=== PATIENT | male | born 1965 | race Caucasian/White ===

== ENCOUNTER 2021-06-12 09:36 | Outpatient (REF) | payer OTHER, SELFPAY ==
[2021-06-12 10:35] LABS: COVID-19 Test Negative (Negative)
== END 2021-06-12 09:37 | disposition home or self-care (01) ==
LOC: HO.LAB 09:36
PROVIDERS: Visit Provider Internal Medicine
DX: Z20.822 Contact with and (suspected) exposure to COVID-19 (principal)
CPT/HCPCS: 36415; 87635; C9803

== ENCOUNTER 2021-10-09 07:44 | Emergency (ER) | payer OTHER, SELFPAY ==
[2021-10-09 07:48] VITALS: BP 133/94; PULSE 115; RESP 16; TEMP 36.6; O2SAT 97; BMI 21.7
== END 2021-10-09 10:02 | disposition left against medical advice (07) ==
PROVIDERS: Emergency Provider Emergency Medicine
DX: R44.3 Hallucinations, unspecified (principal); M79.10 Myalgia, unspecified site; I10 Essential (primary) hypertension
CPT/HCPCS: 99281

== ENCOUNTER 2023-01-09 08:35 | Outpatient (RCR) | payer OTHER, SELFPAY | END 2023-01-21 09:52 | disposition home or self-care (01) | LOC: HO.PT 08:35 | PROVIDERS: PCP Student in an Organized Health Care Education/Training Program; Visit Provider Student in an Organized Health Care Education/Training Program | DX: M54.02 Panniculitis affecting regions of neck and back, cervical region (principal) | CPT/HCPCS: 97161; 97530 ==

== ENCOUNTER 2025-02-01 09:51 | Outpatient (AMB) | payer OTHER, SELFPAY | END 2025-02-01 15:53 | disposition home or self-care (01) | LOC: HO.HMGAL 09:51 | PROVIDERS: PCP Student in an Organized Health Care Education/Training Program; Visit Provider Registered Nurse Emergency | DX: J30.89 Other allergic rhinitis (principal) | CPT/HCPCS: 95117; 95165 ==

== ENCOUNTER 2025-02-22 10:34 | Outpatient (AMB) | payer OTHER, SELFPAY | END 2025-02-22 10:45 | disposition home or self-care (01) | LOC: HO.HMGAL 10:34 | PROVIDERS: PCP Student in an Organized Health Care Education/Training Program; Visit Provider Registered Nurse Emergency | DX: J30.89 Other allergic rhinitis (principal) | CPT/HCPCS: 95117; 95165 ==

== ENCOUNTER 2025-03-29 10:56 | Outpatient (AMB) | payer OTHER, SELFPAY | END 2025-03-29 10:56 | disposition home or self-care (01) | LOC: HO.HMGAL 10:56 | PROVIDERS: PCP Nurse Practitioner Family; Visit Provider Registered Nurse Emergency | DX: J30.89 Other allergic rhinitis (principal) | CPT/HCPCS: 95117; 95165 ==

== ENCOUNTER 2025-04-12 10:43 | Outpatient (AMB) | payer OTHER, SELFPAY ==
--- OUTSIDE RECORDS SUMMARY | 2025-04-12 13:06 | XMS_ITS | Data Portability ---
Author Organization [place] - [facility], [facility] Address [address] [place] [address] Care Team Providers Care Fiberglasser Name Role Phone MARY LOU GUNDERSON Primary Care Provider Assessment No assessment recorded. Plan of Treatment Reminders Order Date Submit Date Provider Last Modified By Organization Details Last Modified Time Details Appointments MUST SEE 15 2024 01:15P Tres Astudillo MD Not available Not available Not available Lab None recorded. Referral None recorded. Procedures None recorded. Surgeries None recorded. Imaging MRI, lumbar spine, w/o contrast - EVALUATE LUMBAR FOR RADICULOP ATHY 2024 025 [facility] ([facility]), [address], [place], [address], 07/04/2024 14:35:33 XR, thoracic spine, 2 view - RM 120 2 V THORA COLUMBAR SPINE AP/LATERA L 2024 025 [email or web address], [address], [address], [place], [address], 07/01/2024 11:52:53 Medication Orders None recorded. Patient TargetsNo targets recorded. Patient InstructionsNo instructions recorded. Reason for Referral None Reported. Results Created Date Observation Date Name Description Value Unit Range Abnormal Flag Note LastModifiedBy Organization Detail LastModifiedTime 06/18/1906/18/2024 XR, thora cic spine , 2 view http:/ [email or web address] ?Encry pted=s hAaTro YD8dLq bEUv6g %2BXZw aYqtaq 0bqfl% 2Fg9IQ a4ajBk vP9nXo QUaueC m3YtLR FvZlgJ JJ8mAn HZtai3 0d7857 AC0Kqb 3%2BEV auuKiQ trMwF INTERFACE [facility] [address], [place], [address], 06/18/2024 14:10:20 06/18/19 25 06/18/2024 XR, thora cic spine , 2 view [email or web address] ?Encry pted=s hAaTro YD8dLq bEUv6g %2BXZw aYqtaq 0bqfl% 2Fg9IQ a4ajBk vP9nXo QUaueC m3YtLR FvZlgJ JJ8mAn HZtai3 0u9801 AC0Kqb 3%2BEV auuKiQ trMwF INTERFACE [facility] [address], [place], [address], 06/18/2024 14:10:22 07/04/19 25 07/01/2024 MRI, lumba r spine , w/o contr ast [facility] Access ion Number : [id number] Patirita t Name: Jose A Oconnellon Gelya l Record Number : [id number] Date of : 1964 Date of Exam: 2024 Referr ing Physic rsoio: Jessica [facility] [address] [facility], [facility] [address] Exam: MR Lumbar Spine (C-) CPT 61808 Room Descri ption: Payne GE Pion 3T INDICA TION: Consen t back pain extend ing into the left lower extrem ity with parest hesias . Histor y of scolio sis surger y in 2019 and 1983. TECHNI QUE: Multip lanar multis equenc e MRI of the lumbar spine was perfor med withou t IV contra st COMPAR KIRA: No prior FINDIN GS: There is levosc oliosi s of the lumbar spine center ed at L2. The sagitt al alignm ent is otherw ise mainta ined. There is contract administration manager ior spinal fusion with instru mentat ion due to patien t's prior scolio sis surger ies. Instru mentat ion is presen t from L2 throug h S1-S2. Verteb ral body height s are mainta ined. There are Modic type I/II endpla te marrow change s at L5-S1 and L4-L5. There is no suspic ious bone marrow lesion . The conus termin ates at T12-L1 . The parasp inal soft tissue s extuba jacquelyn fat infilt ration at the lower lumbar upper sacral spine probab ly relate d to postsu rgical change s. The parasp inal soft tissue s are otherw ise unrema rkable . T2 hyperi ntense foci are presen t in both kidney s compat ible with simple cysts. The retrop eriton eum is otherw ise normal . At T12-L1 , there is no spinal canal or forami nal stenos is. There is disc desicc ation withou t bulgin g. There is levosc oliosi s. At L1-L2, the spinal canal is subopt imally evalua jacquelyn due to artifa ct relate d to hardwa re. There is no canal or forami nal stenos is. There is disc desicc ation withou t disc bulgin g. At L2-L3, there is subopt imal evalua tion of the forami na and canal due to artifa ct relate d to adjace nt hardwa re. At L3-L4, there is partia l obscur ation of the right forame n due to artifa ct. There is no canal or left forami nal stenos is. At L4-L5, there are contract administration manager ior endpla te spurs and a minima l disc bulge withou t canal stenos is. There is no forami nal stenos is. At L5-S1, artifa ct preven ts full evalua tion of the canal. There is no signif icant forami nal stenos is. IMPRES CATHREINE: Postsu rgical change s of the lumbar spine with artifa ct partia lly obscur ing the L1-L2 canal, L2-L3 canal and forami na, L3-L4 right forame n, and L5-S1 canal. Levosc oliosi s of the lumbar spine center ed at L2. No high-g rade spinal canal or forami nal stenos es at the visual ized levels . Electr onical ly Signed By: Lore [email or web address] [facility] ([facility]) [address] [facility] [place], [address], 07/06/2024 09:57:03 07/04/19 25 07/01/2024 MRI, lumba r spine , w/o contr ast No observ ation record ed. [facility] [address] [place], [address], 07/06/2024 09:56:59 Result Notes Documentation Provider Name and Address Organization Details Recorded Time Xr, Thoracic Spine, 2 View : [email or web address] ncrypted=blOxHgvUC9lLylTBm 6g%9FIIfsTldwm4xprx%2Fg9IQ h3rhYroH9dLiRCrncYo4WyGHOx VtqZVH8dUzQGwuf28p6131JQ6B qb3%2BEVauuKiQtrMwF Not Available [facility] 06/18/2024 14:10:21 Xr, Thoracic Spine, 2 View : [email or web address] ncrypted=vsBzZreFU0wVkePFz 6g%2HYEntGnlqu8hqfp%2Fg9IQ q4ukIgwJ9oVoKBfeeTy7LjDPPh GtmZAW7rNmKAhqr17q5583PW6X qb3%2BEVauuKiQtrMwF Not Available [facility] 06/18/2024 14:10:23 [facility]ri, Lumbar Spine, W/o Contrast : [facility]: [id number] Patient Name: Arian Oconnell Date of : 1965 Date of Exam: 07-01-2024 Referring Physician: Jessica Morales [facility] [address] [place], [place] [address] Exam: MR Lumbar Spine (C-) CPT 81217 Room Description: Payne GE Pion 3T INDICATION: Consent back pain extending into the left lower extremity with paresthesias. History of scoliosis surgery in 2019 and 1983. TECHNIQUE: Multiplanar multisequence MRI of the lumbar spine was performed without IV contrast COMPARISON: No prior FINDINGS: There is levoscoliosis of the lumbar spine centered at L2. The sagittal alignment is otherwise maintained. There is posterior spinal fusion with instrumentation due to patient's prior scoliosis surgeries. Instrumentation is present from L2 through S1-S2. Vertebral body heights are maintained. There are Modic type I/II endplate marrow changes at L5-S1 and L4-L5. There is no suspicious bone marrow lesion. The conus terminates at T12-L1. The paraspinal soft tissues extubated fat infiltration at the lower lumbar upper sacral spine probably related to postsurgical changes. The paraspinal soft tissues are otherwise unremarkable. T2 hyperintense foci are present in both kidneys compatible with simple cysts. The retroperitoneum is otherwise normal. At T12-L1, there is no spinal canal or foraminal stenosis. There is disc desiccation without bulging. There is levoscoliosis. At L1-L2, the spinal canal is suboptimally evaluated due to artifact related to hardware. There is no canal or foraminal stenosis. There is disc desiccation without disc bulging. At L2-L3, there is suboptimal evaluation of the foramina and canal due to artifact related to adjacent hardware. At L3-L4, there is partial obscuration of the right foramen due to artifact. There is no canal or left foraminal stenosis. At L4-L5, there are posterior endplate spurs and a minimal disc bulge without canal stenosis. There is no foraminal stenosis. At L5-S1, artifact prevents full evaluation of the canal. There is no significant foraminal stenosis. IMPRESSION: Postsurgical changes of the lumbar spine with artifact partially obscuring the L1-L2 canal, L2-L3 canal and foramina, L3-L4 right foramen, and L5-S1 canal. Levoscoliosis of the lumbar spine centered at L2. No high-grade spinal canal or foraminal stenoses at the visualized levels. Electronically Signed By: Lore MORALES PA-C [address], [place], [address], [facility] 07/06/2024 09:57:03 Problems Name Problem SNOMED Code Status Onset Date Resolution Date Notes Provider Name and Address Organization Details Recorded Time Lumbar radiculopathy 763324383 Active 2024 JESSICA MORALES PA-C [address], [place], [address], [facility] 10:38:48 Problem Notes None recorded. Medical Equipment None Reported. Allergies No known drug allergies Medications Name Sig Start Date Stop Date Status Note LastModified by Organization Details LastModified Time atorvastatin 20 mg tablet TOME 1 TABLETA POR V A ORAL TODOS LOS D AL ACOSTARSE active Not Available Not Available No t Available cetirizine 10 mg tablet TOME 1 TABLETA POR V A ORAL TODOS LOS D active Not Available Not Available No t Available meloxicam 15 mg tablet TOME 1 TABLETA POR V A ORAL TODOS LOS D active Not Available Not Available No t Available omeprazole 40 mg capsule,jaskaran yed release active Not Available Not Available Not Available lisinopril 30 mg tablet TOME MAURY TABLETA TODOS LOS D active Not Available Not Available No t Available gabapentin 100 mg capsule ALYCIA MAURY CAPSULA POR LA BOCA JAYCOB VECES AL CARLY MAYANK SEA NECESARIO PAIN RADIATING DOWN LEG active Not Available Not Available No t Available albuterol sulfate HFA 90 mcg/actuatio n aerosol inhaler USAR 2 INHALACIONS POR LA BOCA CUATRO VECES AL CARLY CUANDO SEA NECESARIO PARA HARRIETT active Not Available Not Available No t Available ketoconazole 2 % topical cream APLIQUE AL SUKHI AFECTADA TOPICALLY TODOS LOS D FOR 14 DAYS active Not Available Not Available No t Available lisinopril 40 mg tablet TOME 1 TABLETA POR V A ORAL TODOS LOS D active Not Available Not Available No t Available fluticasone propionate 50 mcg/actuatio n nasal spray,suspen catherine active Not Available Not Available Not Available diclofenac 1 % topical gel APLIQUE CUATRO VECES AL D A TO SHOULDER/BA CK active Not Available Not Available No t Available Certavite-An tioxidant 18 mg-400 mcg tablet TOME MAURY TABLETA TODOS LOS D active Not Available Not Available No t Available Clear Eyes Natural Tears 0.5 %-0.6 % drops INSTILL 2 DROPS EYES, BOTH 2 TIMES A DAY, NEEDED FOR DRY EYES active Not Available Not Available No t Available Vitals Date Recorded Body height Body mass index (BMI) Body weight Provider Name and Address Organization Details Last Updated DateTime 06/18/2024 160.02 cm 23.9 kg/m2 95171.97 g Dayo Yu [facility] 06/18/2024 13:57:56 Date Recorded Body height Body mass index (BMI) Body weight Provider Name and Address Organization Details Last Updated DateTime 07/10/2024 160.02 cm 23.9 kg/m2 84024.97 g KRISTA VARNER [facility] 07/10/2024 14:27:18 Date Recorded Body height Provider Name an d Address Organization Details Last Updated DateTime 10/09/2024 160.02 cm RAMIREZ FLORES [facility] 10/09/2024 09:16:29 Date Recorded Body height Body mass index (BMI) Body weight Provider Name and Address Organization Details Last Updated DateTime 02/10/2025 160.02 cm 23.9 kg/m2 91137.97 g DEENA HARDEN [facility] 02/10/2025 11:52:18 Social History None recorded. Functional Status None recorded. Mental Status None recorded. Family History Nothing Reported. Medical History No medical history recorded. Past Encounters Encounter ID Performer Location Encounter Start Date Encounter Closed Date Diagnosis/Indication Diagnosis SNOMED-CT Code Diagnosis ICD10 Code Diagnosis IMO Codes Diagnosis Note [id number] SULEIMAN JACKSON [facility] [address] [place] [address] 06/18/2024 13:37:24 07/01/2024 11:52:53 Low back pain 761628371 M54.50 324246 Lumbar radiculopathy 128 678136 M54.16 [id number] SULEIMAN JACKSON [facility] [place] [address] [place] [address] 07/10/2024 14:24:38 07/20/2024 13:30:16 Congenital postural scoliosis 29702661 Q67.5 5682 Lumbar radiculopathy 128 695303 M54.16 89498 [id number] JESSICA MORALSE PA-C [facility] [address] [place] [address] 10/09/2024 08:58:29 10/16/2024 11:35:24 Lumbar radiculopathy 633812837 M54.16 56416 [id number] Hazel Ramirez PA-C [facility] [place] [address] [place] [address] 02/10/2025 11:47:19 02/19/2025 08:21:18 Lumbar radiculopathy 920113187 M54.16 17267 Health Concerns Section Related Observation LastModified by Organization Detai ls LastModified Time None Recorded Concern Status LastModified by Organization Details LastModified Time None Recorded Advance Directives Directive None Recorded Payers Insurance Date Sequence Insurance Name Policy Number Policy White Covered Member ID White Member ID Guarantor Name 02/19/2025 1 [facility] - DOS ON OR AFTER 2022 - ONE CARE (MEDICARE REPLACEMENT/ADV ANTAGE - HMO) Arianvida Oconnell [id number] Arianvida Majora Notes Date Note Type Note Provider Name and Address Organization Details Recorded Time 06/18/2024 text/html I am seeing the patient today under the supervision of Dr. Martinez who was available but who did not see the patient. HPI: Patient is a pleasant 59-year-old male who presents for evaluation of ongoing low back pain. Patient has a history significant for scoliosis he underwent lumbar fusion surgery back in 1983 most recently in 1999 and one of the rods broke and had to be replaced. He states he has been having mid to low back pain with radicular symptoms down his left leg when he is standing and walking for prolonged periods of time. His primary care physician has been treating and following him at this point. He states he has done acupuncture and physical therapy in the past as well as currently taking meloxicam, gabapentin and Tylenol daily. He states he still occasionally has severe pain from time to time. He is also utilizing a brace on and off when the pain is severe. Denies any trauma. TREATMENTS: As noted in HPI Past family, medical, social history and review of systems has been reviewed, updated and signed by me and is located in the patient s chart. Examination: The patient is well appearing, alert and oriented x3 and in no acute distress. Gait is antalgic. Patient is able to transition from seated to standing position without difficulty.Inspection of the spine reveals no step off, deformity or overlying skin changes or atrophy. Patient has a notable elevation of the left shoulder compared to the right side. Hip levels seem to be neutral.The spine is tender over the mid levels of the thoracic spine nontender over the paravertebral musculature of the thoracic and lumbar spine. Nontender over TFL, greater trochanters or posterior hip musculature.Range of motion of the Lumbar spine is 75% of normal pain noted with extension.Range of motion of the hips and knees is full without discomfortStrength in lower extremity myotomes 5/5 bilaterally.Sensation intact.Re e xes normal 2+at knee and ankle. No ankle clonus X-rays ordered, obtained and reviewed at [facility], 2 views of the thoracic spine reveals no fractures, instability or bony lesions. Degenerative disc disease noted. He can see the upward ends of the previous hardware from the spinal fusion. Scoliosis views completed at [facility] in September of last year indicative of severe scoliosis. Lumbar fusion hardware was in place without any signs of breaks or shifting.76 degree convex right curve T4-T962 degrees left curvature of T9-L3 Impression/Plan: Severe scoliosis with degenerative disc disease and spondylosis. Discussed with the patient at this time I would recommend moving forward with an MRI to evaluate the lumbar spine to potentially trial injection type therapy. He is maxed out on conservative measures at this time and has not had significant relief of symptoms. Patient expressed understanding and agreed with the plan will order an MRI of the lumbar spine and follow-up in 2 to 3 weeks in office to review. [employer] speech recognition gearcase assembler software was used to create portions of this document. An attempt at proofreading has been made to minimize errors. Please call for corrections. JESSICA MORALES PA-C [address] [place] [address] [address], [place], [address], [facility] 06/18/2024 15:21:53 07/10/2024 text/html I am seeing the patient today under the supervision of Dr. Del Real who was available but who did not see the patient. HPI: Patient is a pleasant 59-year-old male who presents for evaluation of ongoing low back pain. Patient has a history significant for scoliosis he underwent lumbar fusion surgery back in 1983 most recently in 1999 and one of the rods broke and had to be replaced. Patient presents today in follow-up for MRI of the lumbar spine. He states his pain has remained about the same he has left leg radicular symptoms. TREATMENTS: As noted in HPI Past family, medical, social history and review of systems has been reviewed, updated and signed by me and is located in the patient s chart. Examination: The patient is well appearing, alert and oriented x3 and in no acute distress. Gait is antalgic. Patient is able to transition from seated to standing position without difficulty.Inspection of the spine reveals no step off, deformity or overlying skin changes or atrophy. Patient has a notable elevation of the left shoulder compared to the right side. Hip levels seem to be neutral.The spine is tender over the mid levels of the thoracic spine nontender over the paravertebral musculature of the thoracic and lumbar spine. Nontender over TFL, greater trochanters or posterior hip musculature.Range of motion of the Lumbar spine is 75% of normal pain noted with extension.Range of motion of the hips and knees is full without discomfortStrength in lower extremity myotomes 5/5 bilaterally.Sensation intact.Re e xes normal 2+at knee and ankle. No ankle clonus X-rays ordered, obtained and reviewed at [facility], 2 views of the thoracic spine reveals no fractures, instability or bony lesions. Degenerative disc disease noted. He can see the upward ends of the previous hardware from the spinal fusion. Scoliosis views completed at [facility] in September of last year indicative of severe scoliosis. Lumbar fusion hardware was in place without any signs of breaks or shifting.76 degree convex right curve T4-T962 degrees left curvature of T9-L3 MRI dated 07/01/2024 lumbar spine independently reviewed in office today due to hardware and scoliosis nature there is some artifact that does not allow us to completely the entirety of the lumbar spine L1-L2 no canal or foraminal stenosis however there is disc desiccation Jacy Forman 3 again send left Jacy Forman evaluation is noted. L3-L4. Foramen is not able to be viewed however there is no canal or left foraminal stenosis. L4-L5 there is posterior endplate spurring minimal disc herniation without canal stenosis. L5-S1 artifact prevents evaluation of the canal but there is no significant foraminal stenosis. Postsurgical changes are noted due to the artifact notable levoscoliosis of the lumbar spine centered at L2. Impression/Plan: Severe scoliosis with degenerative disc disease and spondylosis. Discussed with the patient I would recommend moving forward with injection therapy. He states he is agreeable to this as he was scheduled for them in the past but was unable to go due to moving to [place] for short amount of time. Patient was referred to [facility] pain management for evaluation and treatment for potential lumbar injections will plan to follow-up in 3 months. Patient expressed understanding for the plan all her questions asked and answered. [employer] speech recognition gearcase assembler software was used to create portions of this document. An attempt at proofreading has been made to minimize errors. Please call for corrections. JESSICA MORALES PA-C [address] [facility] [address], [place], [address], [facility] 07/10/2024 16:20:36 10/09/2024 text/html I am seeing the patient today under the supervision of Dr. Del Real who was available but who did not see the patient. HPI: Patient is a pleasant 59-year-old male who presents for evaluation of ongoing low back pain. Patient has a history significant for scoliosis he underwent lumbar fusion surgery back in 1983 most recently in 1999 and one of the rods broke and had to be replaced. Patient presents today in follow-up for MRI of the lumbar spine. Patient presents today in follow-up status post injection therapy. TREATMENTS: As noted in HPI Past family, medical, social history and review of systems has been reviewed, updated and signed by me and is located in the patient s chart. Examination: The patient is well appearing, alert and oriented x3 and in no acute distress. Gait is antalgic. Patient is able to transition from seated to standing position without difficulty.Inspection of the spine reveals no step off, deformity or overlying skin changes or atrophy. Patient has a notable elevation of the left shoulder compared to the right side. Hip levels seem to be neutral.The spine is nontender over the mid levels of the thoracic spine nontender over the paravertebral musculature of the thoracic and lumbar spine. Nontender over TFL, greater trochanters or posterior hip musculature.Range of motion of the Lumbar spine is 75% of normal pain noted with extension.Range of motion of the hips and knees is full without discomfortStrength in lower extremity myotomes 5/5 bilaterally.Sensation intact.Re e xes normal 2+at knee and ankle. No ankle clonus X-rays ordered, obtained and reviewed at [facility], 2 views of the thoracic spine reveals no fractures, instability or bony lesions. Degenerative disc disease noted. He can see the upward ends of the previous hardware from the spinal fusion. Scoliosis views completed at [facility] in September of last year indicative of severe scoliosis. Lumbar fusion hardware was in place without any signs of breaks or shifting.76 degree convex right curve T4-T962 degrees left curvature of T9-L3 MRI dated 07/01/2024 lumbar spine independently reviewed in office today due to hardware and scoliosis nature there is some artifact that does not allow us to completely the entirety of the lumbar spine L1-L2 no canal or foraminal stenosis however there is disc desiccation Jacy Forman 3 again send left Jacy Forman evaluation is noted. L3-L4. Foramen is not able to be viewed however there is no canal or left foraminal stenosis. L4-L5 there is posterior endplate spurring minimal disc herniation without canal stenosis. L5-S1 artifact prevents evaluation of the canal but there is no significant foraminal stenosis. Postsurgical changes are noted due to the artifact notable levoscoliosis of the lumbar spine centered at L2. Impression/Plan: Severe scoliosis with degenerative disc disease and spondylosis. Patient presents status post injection therapy with complete resolution of symptoms. At this time does not need formal follow-up in our office would recommend following [employer] spine sport and will be referred back in the event he has worsening symptoms of weakness into the distal extremities. Patient expressed understanding of the plan all questions asked and answered. [facility] speech recognition gearcase assembler software was used to create portions of this document. An attempt at proofreading has been made to minimize errors. Please call for corrections. JESSICA MORALES PA-C [address] [facility] [address], [place], [address], [place] - [facility] 10/09/2024 10:39:04 02/10/2025 text/html I am seeing the patient today under the supervision of Dr. Del Real who was available but who did not see the patient. HPI: Patient is a pleasant 59-year-old male who presents for further evaluation of ongoing low back and buttocks pain. Previous back surgery with Dr. Wilkins. He has been followed here by Jessica. He underwent injections at [employer] [facility] recently. He states they are going to try a second injection shortly. Recent trial of Mobic ineffective. They increased his gabapentin to 400 mg dosing. He is not sure if it is helping. He reports radiating left leg pain down to the foot. He uses a cane. He reports weakness in the left leg only. Past family, medical, social history and review of systems has been reviewed, updated and signed by me and is located in the patient s chart. Examination: The patient is well appearing, alert and oriented x3 and in no acute distress. Gait is antalgic. Patient is able to transition from seated to standing position without difficulty.Inspection of the spine reveals scoliotic curvature with forward flexion. There is no tenderness over the midline of over the paravertebral musculature of the thoracic and lumbar spine. Nontender over TFL, greater trochanters or posterior hip musculature. Range of motion of the Lumbar spine is 75% of normal pain noted with extension. Range of motion of the hips and knees is full without discomfortNo focal deficits distally in either lower extremity. X-rays previously ordered, obtained and reviewed at [facility], 2 views of the thoracic spine reveals severe scoliosis thoracic spine with lumbar fusion hardware intact. Spondylosis. MRI dated 07/01/2024 lumbar spine independently reviewed in office today due to hardware and scoliosis nature there is some artifact that does not allow us to completely the entirety of the lumbar spine. Postsurgical changes of the lumbar spine with artifact partially obscuring the L1-L2 canal, L2-L3 canal and foramina, L3-L4 right foramen, and L5-S1 canal. Levoscoliosis of the lumbar spine centered at L2. No high-grade spinal stenosis at any level. Impression/Plan: Severe scoliosis with multilevel degenerative disc disease without evidence of high-grade stenosis. Previous lumbar fusion with Claud[facility]. I think the best place for him is pain management. He will try another injection and follow-up with her provider with regards to medications. Given previous surgery with Claud[facility] will offer follow-up with one of our spine surgeons if no improvement despite this. [employer] speech recognition gearcase assembler software was used to create portions of this document. An attempt at proofreading has been made to minimize errors. Please call for corrections. Hazel Ramirez PA-C [address] [facility] [address], [place], [address], [facility] - [facility] 02/10/2025 12:10:56
== END 2025-04-12 10:45 | disposition home or self-care (01) ==
LOC: HO.HMGAL 10:43
PROVIDERS: PCP Nurse Practitioner Family; Visit Provider Registered Nurse Emergency
DX: J30.89 Other allergic rhinitis (principal)
CPT/HCPCS: 95117; 95165

== ENCOUNTER 2025-04-28 10:57 | Outpatient (AMB) | payer OTHER, SELFPAY ==
--- OUTSIDE RECORDS SUMMARY | 2025-04-28 21:38 | XMS_ITS | Continuity of Care Document ---
Author Organization [facility], BETZAIDA Hernandez 3rd floor Address [address] [place] [address] Care Team Providers Care Bond Analyst Name Role Phone MARY LOU GUNDERSON Primary Care Provider Assessment No assessment recorded. Plan of Treatment Reminders Order Date Submit Date Provider Last Modified By Organization Details Last Modified Time Details Appointments MUST SEE MD Contreras 025 01:15PM Joseph Astudillo MD Not available Not available Not available Lab None record ed. Referral None record ed. Procedures None record ed. Surgeries None record ed. Imaging None record ed. Medication Orders None record ed. Patient TargetsNo targets recorded. Patient InstructionsNo instructions recorded. Reason for Referral None Reported. Problems Name Problem SNOMED Code Status Onset Date Resolution Date Notes Provider Name and Address Organization Details Recorded Time Lumbar radiculopathy 927443135 Active 2024 JESSICA LOWRY PA-C [address] [facility] [address], [place], [address] [place] [address] [facility] 5 10:38:48 Problem Notes None recorded. Medical Equipment [...] fluticasone propionate 50 mcg/actuatio n nasal spray,suspen sharon active Not Available Not Available Not Available [...] Updated DateTime 02/10/2025 160.02 cm 23.9 kg/m2 38046.97 g DEENA HARDEN [place] - [facility] 02/10/2025 11:52:18 Social History None recorded. Functional Status None recorded. Mental Status None recorded. Family History Nothing Reported. Medical History No medical history recorded. Past Encounters Encounter ID Performer Location Encounter Start Date Encounter Closed Date Diagnosis/Indication Diagnosis SNOMED-CT Code Diagnosis ICD10 Code Diagnosis IMO Codes Diagnosis Note [id number] SULEIMAN [facility] - [facility] 3rd floor [address] [place] [address] 02/10/2025 11:47:19 02/19/2025 08:21:18 Lumbar radiculopathy 202150445 M54.16 16707 Health Concerns Section Related Observation LastModified by Organization Detai ls LastModified Time None Recorded Concern Status LastModified by Organization Details LastModified Time None Recorded Payers Encounter Date Sequence Insurance Name Policy Number Policy White Covered Member ID White Member ID Guarantor Name 02/10/2025 1 [facility] - DOS ON OR AFTER 2022 - ONE CARE (MEDICARE REPLACEMENT/ADV ANTAGE - HMO) Arian Oconnell [id number] Arian Oconnell Notes Date Note Type Note Provider Name and Address Organization Details Recorded Time 02/10/2025 text/html I am seeing the patient today under the supervision of Dr. Del Real who was available but who did not see the patient. HPI: Patient is a pleasant 59-year-old male who presents for further evaluation of ongoing low back and buttocks pain. Previous back surgery with Dr. Wilkins. He has been followed here by Jessica. He underwent injections at [facility] recently. He states they [...] transition from seated to standing position without difficulty.Inspecti on of the spine reveals scoliotic curvature with [...] X-rays previously ordered, obtained and reviewed at [facility], 2 views of the thoracic spine reveals [...] of high-grade stenosis. Previous lumbar fusion with [facility]. I think the best place for him is pain management. He will try another injection and follow-up with her provider with regards to medications. Given previous surgery with [facility] will offer follow-up with one of our spine surgeons if no improvement despite this. [employer] speech recognition drop press hand software was used to create portions of this document. An attempt at proofreading has been made to minimize errors. Please call for corrections. Hazel Ramirez PA-C [address] [facility] [address], [place], [address], [facility] - [facility] 02/10/2025 12:10:56
--- OUTSIDE RECORDS SUMMARY | 2025-04-28 21:38 | XMS_ITS | Data Portability ---
Author Organization [place] - [facility], [facility] Address [address] [place] [address] Care Team Providers Care Structural Iron Worker Name Role Phone MARY LOU GUNDERSON Primary [...] EVALUATE LUMBAR FOR RADICULOP ATHY 2024 025 [facility] ([facility] [address], [place], [address], 07/04/2024 14:35:33 XR, thoracic spine, 2 view - RM 120 2 V THORA COLUMBAR SPINE AP/LATERA L 2024 025 [facility], [address], [place], [address], 07/01/2024 11:52:53 Medication Orders None recorded. Patient [...] a4ajBk vP9nXo QUaueC m3YtLR FvZlgJ JJ8mAn HZtai3 4q0496 AC0Kqb 3%2BEV auuKiQ trMwF INTERFACE [facility] [address], [place], [address], 06/18/2024 14:10:20 06/18/19 25 06/18/2024 XR, thora cic spine , 2 view http:/ [email or web address] ?Encry pted=s hAaTro YD8dLq bEUv6g %2BXZw aYqtaq 0bqfl% 2Fg9IQ a4ajBk vP9nXo QUaueC m3YtLR FvZlgJ JJ8mAn HZtai3 1v8196 AC0Kqb 3%2BEV auuKiQ trMwF INTERFACE [facility] [address], [place], [address], 06/18/2024 14:10:22 07/04/19 25 07/01/2024 MRI, lumba r spine , w/o contr ast [facility] Access ion Number : [id number] Patirita t Name: Jose A Oconnellon Gelya l Record Number : [id number] Date of : 1964 Date of Exam: 2024 Referr ing Physic rosio: Jessica Garcia i [facility] [address] [facility], [facility] [address] Exam: MR Lumbar Spine (C-) CPT 72705 Room Descri ption: [place] GE Pion 3T INDICA TION: Consen t [...] is otherw ise mainta ined. There is closing agent ior spinal fusion with instru mentat ion [...] nal stenos is. At L4-L5, there are closing agent ior endpla te spurs and a minima l disc bulge withou t canal stenos is. There is no forami nal stenos is. At L5-S1, artifa ct preven ts full evalua tion of the canal. There is no signif icant forami nal stenos is. IMPRES CATHERINE: Postsu rgical change s of the lumbar [...] Electr onical ly Signed By: Lore [email or web address] [facility] ([facility]) [address] [facility] [place], [address], 07/06/2024 09:57:03 07/04/19 25 07/01/2024 MRI, lumba r spine , w/o contr ast No observ ation record ed. [facility] [address] [place], [address], 07/06/2024 09:56:59 Result Notes Documentation Provider Name and Address Organization Details Recorded Time Xr, Thoracic Spine, 2 View : [email or web address]?E ncrypted=pxJaOxgNF3qJcmEAu 6g%8WPFeyZnxlz6wxuf%2Fg9IQ p1jnHwmK3fBiNKgffGa7YeQOId FbkBJD7aQjZNmtn85h6020JC1B qb3%2BEVauuKiQtrMwF Not Available [facility] 06/18/2024 14:10:21 Xr, Thoracic Spine, 2 View : [email or web address] ncrypted=erBnPqdWF2hLysBBl 6g%4VUMivDujvz2jdix%2Fg9IQ y3boRnqN3jZoSBoyjEs0YiLISv StnCIM7mCwNHpsw69j1119TZ6E qb3%2BEVauuKiQtrMwF Not Available [facility] 06/18/2024 14:10:23 Mri, Lumbar Spine, W/o Contrast : [facility]: [id number] Patient Name: Arian Oconnell Date of : 1965 Date of Exam: 07-01-2024 Referring Physician: Jessica Morales [facility] [address] [place], [place] [address] Exam: MR Lumbar Spine (C-) CPT 15314 Room Description: [place] GE Pion 3T INDICATION: Consent back pain [...] MORALES PA-C [address], [place], [address], [facility] 07/06/2024 09:57:03 Problems Name Problem SNOMED Code Status Onset Date Resolution Date Notes Provider Name and Address Organization Details Recorded Time Lumbar radiculopathy 971716051 Active 2024 JESSICA MORALES PA-C [address], [place], [address], [facility] 10:38:48 Problem Notes None [...] Updated DateTime 06/18/2024 160.02 cm 23.9 kg/m2 18001.97 g Dayo Yu [facility] 06/18/2024 13:57:56 Date Recorded Body height Body mass index (BMI) Body weight Provider Name and Address Organization Details Last Updated DateTime 07/10/2024 160.02 cm 23.9 kg/m2 00411.97 g KRISTA VARNER [facility] 07/10/2024 14:27:18 Date Recorded Body height Provider Name an d Address Organization Details Last Updated DateTime 10/09/2024 160.02 cm RAMIREZ FLORES [facility] 10/09/2024 09:16:29 Date Recorded Body height Body mass index (BMI) Body weight Provider Name and Address Organization Details Last Updated DateTime 02/10/2025 160.02 cm 23.9 kg/m2 56423.97 g DEENA HARDEN [facility] 02/10/2025 11:52:18 Social History None recorded. Functional Status None recorded. Mental Status None recorded. Family History Nothing Reported. Medical History No medical history recorded. 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 5682 Lumbar radiculopathy 128 121692 M54.16 [id number] JESSICA MORALES PA-C [facility] - [place] 3[address] floor [address] [place] [address] 10/09/2024 08:58:29 10/16/2024 11:35:24 Lumbar radiculopathy 769777585 M54.16 [id number] Hazel Ramirez PA-C [place] - [place] 3rd floor [address] [place] [address] 02/10/2025 11:47:19 02/19/2025 08:21:18 Lumbar radiculopathy 977686858 M54.16 64271 Health Concerns Section Related Observation LastModified by Organization Detai ls LastModified Time None Recorded Concern Status LastModified by Organization Details LastModified Time None Recorded Advance Directives Directive None Recorded Payers Insurance Date Sequence Insurance Name Policy Number Policy White Covered Member ID White Member ID Guarantor Name 02/19/2025 1 [facility] - DOS ON OR AFTER 2022 - ONE CARE (MEDICARE REPLACEMENT/ADV ANTAGE - HMO) Arianvida Oconnell [id number] Arianvida Majora Notes Date Note Type Note [...] clonus X-rays ordered, obtained and reviewed at [facility], 2 views of the thoracic spine reveals no fractures, instability or bony lesions. Degenerative disc disease noted. He can see the upward ends of the previous hardware from the spinal fusion. Scoliosis views completed at [facility] in September of last year indicative of [...] to 3 weeks in office to review. [employer] speech recognition morning nanny software was used to create portions of this document. An attempt at proofreading has been made to minimize errors. Please call for corrections. JESSICA MORALES PA-C [address] [place] [address] [address], [place], [address], [facility] - [facility] 06/18/2024 15:21:53 07/10/2024 text/html [...] clonus X-rays ordered, obtained and reviewed at [facility], 2 views of the thoracic spine reveals no fractures, instability or bony lesions. Degenerative disc disease noted. He can see the upward ends of the previous hardware from the spinal fusion. Scoliosis views completed at [facility] in September of last year indicative of [...] unable to go due to moving to [place] for short amount of time. Patient was referred to [facility] pain management for evaluation and treatment for potential lumbar injections will plan to follow-up in 3 months. Patient expressed understanding for the plan all her questions asked and answered. [employer] speech recognition morning nanny software was used to create portions of this document. An attempt at proofreading has been made to minimize errors. Please call for corrections. JESSICA MORALES PA-C [address] [facility] [address], [place], [address], [facility] - [facility] 07/10/2024 16:20:36 10/09/2024 text/html I am [...] clonus X-rays ordered, obtained and reviewed at [facility], 2 views of the thoracic spine reveals no fractures, instability or bony lesions. Degenerative disc disease noted. He can see the upward ends of the previous hardware from the spinal fusion. Scoliosis views completed at [facility] in September of last year indicative of [...] follow-up in our office would recommend following [facility] and will be referred back in the event he has worsening symptoms of weakness into the distal extremities. Patient expressed understanding of the plan all questions asked and answered. [facility] speech recognition morning nanny software was used to create portions of this document. An attempt at proofreading has been made to minimize errors. Please call for corrections. JESSICA MORALES PA-C [address] [facility] [address], [place], [address], [place] - [facility] 10/09/2024 10:39:04 02/10/2025 text/html [...] here by Jessica. He underwent injections at [facility] recently. He states they [...] X-rays previously ordered, obtained and reviewed at [facility], 2 views of the thoracic spine reveals [...] spine surgeons if no improvement despite this. [employer] speech recognition morning nanny software was used to create portions of this document. An attempt at proofreading has been made to minimize errors. Please call for corrections. Hazel Ramirez PA-C [address] [facility] [address], [place], [address], [facility] - [facility] 02/10/2025 12:10:56
== END 2025-04-28 10:58 | disposition home or self-care (01) ==
LOC: HO.HMGAL 10:57
PROVIDERS: PCP Nurse Practitioner Family; Visit Provider Registered Nurse Emergency
DX: J30.89 Other allergic rhinitis (principal)
CPT/HCPCS: 95117; 95165

== ENCOUNTER 2025-05-19 10:53 | Outpatient (AMB) | payer OTHER, SELFPAY | END 2025-05-19 10:54 | disposition home or self-care (01) | LOC: HO.HMGAL 10:53 | PROVIDERS: PCP Nurse Practitioner Family; Visit Provider Registered Nurse Emergency | DX: J30.89 Other allergic rhinitis (principal) | CPT/HCPCS: 95117; 95165 ==

== ENCOUNTER 2025-05-31 10:58 | Outpatient (AMB) | payer OTHER, SELFPAY | END 2025-05-31 10:59 | disposition home or self-care (01) | LOC: HO.HMGAL 10:58 | PROVIDERS: PCP Nurse Practitioner Family; Visit Provider Registered Nurse Emergency | DX: J30.89 Other allergic rhinitis (principal) | CPT/HCPCS: 95117; 95165 ==